=== PATIENT | female | born 1970 | race American Indian/Alaskan Native ===

== ENCOUNTER 2018-02-13 18:21 | Emergency (ER) | payer SELFPAY ==
[2018-02-13 18:26] VITALS: BP 142/88
--- NOTE | 2018-02-13 20:02 | Emergency Department Report ---
ED Rash HPI - HPI Chief Complaint: Skin Rash Stated Complaint: RIGHT ARM PAIN Time Seen by Provider: 02/13/18 19:50 Duration: 1 Day Location: Upper Extremities (bilateral upper extremity) Suspected Cause: Insect Rash Symptoms: Yes Itching, Yes Fever, No Facial Swelling, No Tongue/Oral Swelling, No Breathing Difficulties, No Choking Sensation, No Wheezing/Dyspnea, No Peeling, No Blistering, No Lightheaded, No Malaise, No Myalgias Severity: moderate Other History: This is a 47-year-old -[place] female presents with bilateral upper extremity rash and swelling from insect bite Monday. Patient reports helping her brother move on Monday and woke up Monday morning with insect bites to bilateral upper extremity. She originally thought it was associated with mosquitoes but as the day progressed she noticed swelling to bilateral upper extremity with redness. Patient reports right forearm and hand has increased swelling compared to left hand and forearm. She decided to take Benadryl to help with itching and denies any improvements in symptoms. Patient reports this morning with redness and swelling increase to right upper extremity and throat is itchy. Denies difficulty swallowing, drooling, tongue swelling, nausea vomiting, shortness of breath. ED Review of Systems ROS: Stated complaint: RIGHT ARM PAIN Other details as noted in HPI Constitutional: denies: chills, fever ENT: denies: ear pain, throat pain, congestion Respiratory: denies: cough, shortness of breath, wheezing Cardiovascular: denies: chest pain, palpitations, syncope Gastrointestinal: denies: abdominal pain, nausea, vomiting, diarrhea Musculoskeletal: denies: back pain, joint swelling, arthralgia Skin: rash (bilateral upper extremity from forearms to hands). denies: lesions Neurological: denies: headache, weakness, paresthesias Psychiatric: denies: anxiety, depression ED Past Medical Hx - Past Medical History Previous Medical History?: No - Surgical History Past Surgical History?: No - Social History Smoking Status: Never Smoker Substance Use Type: None - Medications Home Medications: Home Medications Medication Instructions Recorded Confirmed Last Taken Type Ibuprofen [Motrin 800 MG tab] 800 mg PO Q8H PRN 05/28/15 05/28/15 05/27/15 20: 00 History Ibuprofen [Motrin 800 MG tab] 800 mg PO Q8HR PRN #30 tablet 09/10/15 Unknown Rx methOCARBAMOL [Robaxin TAB] 500 mg PO Q6H PRN #30 tablet 05/28/15 Unknown Rx traMADol [Ultram 50 MG tab] 50 mg PO Q6HR PRN #20 tablet 05/28/15 Unknown Rx Naproxen [Naprosyn] 500 mg PO TID PRN #15 tablet 02/13/18 Unknown Rx Sulfamethoxazole/Trimethoprim 1 each PO BID #20 tablet 02/13/18 Unknown Rx [Bactrim DS TAB] hydrOXYzine PAMOATE [Vistaril] 25 mg PO Q6HR PRN #15 capsule 02/13/18 Unknown Rx Rash Exam - Exam General: Vital signs noted. No distress. Alert and acting appropriately. HEENT: No Periorbital Edema, No Conjuctival Injection, No Chemosis, No Perioral Edema, No Tongue Edema, No Uvular Edema, No Compromised Airway, No Drooling Lungs: Yes Good Air Exchange (Normal Breath Sounds), No Wheezes, No Ronchi, No Stridor, No Cough, No Labored Respirations, No Retractions, No Use of Accessory Muscles, No Other Abnormal Lung Sounds Heart: Yes Regular, No Murmur Skin: Yes Tenderness, Yes Erythema (moderate swelling from right posterior forearm to hands, 8-10 cm, erythematous), Yes Edema, No Urticarial Rash, No Maculopapular Rash, No Morbilliform rash, No Bulla(e), No Excoriations, No Weeping, No Encrustations ED Course Vital Signs 02/13/18 18:24 Temperature 99 F Pulse Rate 93 H Respiratory 16 Rate Blood Pressure 142/88 O2 Sat by Pulse 100 Oximetry ED Medical Decision Making - Medical Decision Making This is a 47 y.o. female that presents with erythema and swelling of bilateral upper extremity from insect bite. Patient examined by me. No distress noted. Vitals stable. Given dexamethasone 8 mg IM and Bactrim DS by mouth while in the ER. Physical findings susceptible of cellulitis. Start Bactrim DS, naproxen, and vistaril. Instructed to keep area clean daily and elevate arms while sitting. Patient discharged home stable. Follow-up with [facility] in 2-3 days. Critical care attestation.: If time is entered above; I have spent that time in minutes in the direct care of this critically ill patient, excluding procedure time. ED Disposition Clinical Impression: Cellulitis of right arm Cellulitis Qualifiers: Site of cellulitis: extremity Site of cellulitis of extremity: upper extremity Laterality: left Qualified Code(s): L03.114 - Cellulitis of left upper limb Insect bite Qualifiers: Encounter type: initial encounter Qualified Code(s): W57.XXXA - Bitten or stung by nonvenomous insect and other nonvenomous arthropods, initial encounter Disposition: TO HOME OR SELFCARE Is pt being admited?: No Does the pt Need Aspirin: No Condition: Stable Instructions: Insect Bite or Sting (ED), Cellulitis (ED) Additional Instructions: Wash area area daily. Elevate arms while sitting to decrease swelling. Take naproxen 3 times a day as needed for pain. Complete the full course of antibiotics. Follow up with primary care provider at [facility] in 24-72 hours. Prescriptions: hydrOXYzine PAMOATE [Vistaril] 25 mg PO Q6HR PRN #15 capsule PRN Reason: Itching Naproxen [Naprosyn] 500 mg PO TID PRN #15 tablet PRN Reason: Pain Sulfamethoxazole/Trimethoprim [Bactrim DS TAB] 1 each PO BID #20 tablet Referrals: [facility] [Outside] - 3-5 Days [facility] [Outside] - 3-5 Days [facility] [Outside] - 3-5 Days Time of Disposition: 20:13 Print Language: BOTSWANAN
[2018-02-13] MEDS ORDERED: DECADRON IM ONE (20:13)
[2018-02-13] MEDS ORDERED: BACTRIM DS PO ONE (20:13)
== END 2018-02-13 20:25 | disposition home or self-care (01) ==
LOC: ED 18:21
DX: L03.113 Cellulitis of right upper limb (principal); L03.114 Cellulitis of left upper limb; W57.XXXA Bitten or stung by nonvenomous insect and other nonvenomous arthropods, initial encounter; Y93.89 Activity, other specified; Y99.8 Other external cause status; Y92.89 Other specified places as the place of occurrence of the external cause
CPT/HCPCS: 96372; 99282; J1100

== ENCOUNTER 2018-11-09 20:36 | Inpatient (IN) | payer SELFPAY ==
[2018-11-09] MEDS ORDERED: ASPIRIN PO ONE (21:20)
[2018-11-09 22:08] LABS: Hemoglobin 11.6 gm/dl (10.1-14.3); Mean Corpuscular HGB Conc 34 % (30-34); Mean Corpuscular Volume 84 fl (79-97); Platelet Count 171 K/mm3 (140-440); Red Blood Count 4.05 M/mm3 (3.65-5.03); Red Cell Distribution Width 14.7 % (13.2-15.2)
[2018-11-09 22:19] LABS: BUN/Creatinine Ratio 12; Basophils % (Auto) 0.7 % (0.0-1.8); Blood Urea Nitrogen 7 mg/dL (7-17); Calcium 8.4 mg/dL (8.4-10.2); Eosinophils % (Auto) 1.4 % (0.0-4.3); Hemolysis Index 7; Lymphocytes # (Auto) 2.1 K/mm3 (1.2-5.4); Lymphocytes % (Auto) 40.5 % (13.4-35.0); Monocytes % (Auto) 7.4 % (0.0-7.3)
[2018-11-09 22:20] LABS: Eosinophils # (Auto) 0.1 K/mm3 (0.0-0.4); Monocytes # (Auto) 0.4 K/mm3 (0.0-0.8)
[2018-11-09] MEDS ORDERED: NITRO-BID 2% TP ONE (22:58)
--- NOTE | 2018-11-09 23:01 | Emergency Department Report ---
HPI - General Chief Complaint: Chest Pain Time Seen by Provider: 11/09/18 22:50 - HPI HPI: Room 23 The patient is a 48-year-old female presenting with a chief complaint of chest pain. The patient states today she developed substernal chest pain described as sharp and intermittent in nature. Patient denies shortness of breath, nausea/vomiting or diaphoresis. Patient admits to feeling lightheaded for several weeks. The patient states she's never had a stress test or cardiac catheterization. Patient currently gives her chest pain score 0/10 Location: Chest Duration: Intermittent since 17:00 Quality: Sharp Severity: 0/10 Modifying factors: [see above] Context: [see above] Mode of transportation: [not driving] ED Past Medical Hx - Past Medical History Previous Medical History?: No - Surgical History Past Surgical History?: No - Family History Family history: no significant - Social History Smoking Status: Never Smoker Substance Use Type: None (denies illicit drug use), Alcohol (occasional) - Medications Home Medications: Home Medications Medication Instructions Recorded Confirmed Last Taken Type Ibuprofen [Motrin 800 MG tab] 800 mg PO Q8H PRN 05/28/15 05/28/15 05/27/15 20:00 History Ibuprofen [Motrin 800 MG tab] 800 mg PO Q8HR PRN #30 tablet 05/28/15 Unknown Rx methOCARBAMOL [Robaxin TAB] 500 mg PO Q6H PRN #30 tablet 05/28/15 Unknown Rx traMADol [Ultram 50 MG tab] 50 mg PO Q6HR PRN #20 tablet 05/28/15 Unknown Rx Naproxen [Naprosyn] 500 mg PO TID PRN #15 tablet 02/13/18 Unknown Rx Sulfamethoxazole/Trimethoprim 1 each PO BID #20 tablet 02/13/18 Unknown Rx [Bactrim DS TAB] hydrOXYzine PAMOATE [Vistaril] 25 mg PO Q6HR PRN #15 capsule 02/13/18 Unknown Rx ED Review of Systems ROS: Stated complaint: CHEST PAIN/DIZZINESS Other details as noted in HPI Constitutional: denies: diaphoresis Eyes: denies: eye pain ENT: denies: throat pain Respiratory: denies: shortness of breath Cardiovascular: chest pain Endocrine: no symptoms reported Gastrointestinal: denies: nausea, vomiting Genitourinary: denies: dysuria Musculoskeletal: denies: back pain Neurological: other (lightheadedness). denies: headache Physical Exam - Physical Exam Vital Signs: Vital Signs 11/09/18 20:52 Temperature 98.1 F Pulse Rate 72 Respiratory 18 Rate Blood Pressure 176/82 O2 Sat by Pulse 99 Oximetry Physical Exam: GENERAL: The patient is well-developed well-nourished female sitting on stretcher not appearing to be in acute distress. [] HEENT: Normocephalic. Atraumatic. Extraocular motions are intact. Patient has moist mucous membranes. NECK: Supple. Trachea midline CHEST/LUNGS: Clear to auscultation. There is no respiratory distress noted. HEART/CARDIOVASCULAR: Regular. There is no tachycardia. There is no gallop rub or murmur. ABDOMEN: Abdomen is soft, nontender. Patient has normal bowel sounds. There is no abdominal distention. SKIN: There is no rash. There is no edema. There is no diaphoresis. NEURO: The patient is awake, alert, and oriented. The patient is cooperative. The patient has no focal neurologic deficits. The patient has normal speech. Cranial nerves II through XII grossly intact, no drift MUSCULOSKELETAL: There is no evidence of acute injury. ED Course Vital Signs 11/09/18 20:52 Temperature 98.1 F Pulse Rate 72 Respiratory 18 Rate Blood Pressure 176/82 O2 Sat by Pulse 99 Oximetry ED Medical Decision Making - Lab Data Result diagrams: 11/09/18 21:33 11/09/18 21:33 Laboratory Tests 11/09/18 11/09/18 11/09/18 21:33 21:33 21:33 WBC 5.1 RBC 4.05 Hgb 11.6 Hct 34.0 MCV 84 MCH 29 MCHC 34 RDW 14.7 Plt Count 171 Lymph % (Auto) 40.5 H [place] % (Auto) 7.4 H Eos % (Auto) 1.4 Baso % (Auto) 0.7 Lymph # 2.1 [place] # 0.4 Eos # 0.1 Baso # 0.0 Seg Neutrophils % 50.0 Seg Neutrophils # 2.5 Sodium 140 Potassium 3.6 Chloride 102.6 Carbon Dioxide 25 Anion Gap 16 BUN 7 Creatinine 0.6 L Estimated GFR > 60 BUN/Creatinine Ratio 12 Glucose 105 H Calcium 8.4 Troponin T < 0.010 HCG, Qual Negative - EKG Data -: EKG Interpreted by Me EKG shows normal: sinus rhythm Rate: normal - EKG Data When compared to previous EKG there are: previous EKG unavailable Interpretation: other (frequent PVCs) - Radiology Data Radiology results: image reviewed (chest x-ray) interpreted by me: Chest x-ray-no focal infiltrates, no pneumothorax - Differential Diagnosis ACS, pericarditis, GERD Critical care attestation.: If time is entered above; I have spent that time in minutes in the direct care of this critically ill patient, excluding procedure time. ED Disposition Clinical Impression: Chest pain, Frequent PVCs Disposition: -09 OP ADMIT IP TO THIS HOSP Is pt being admited?: Yes Does the pt Need Aspirin: Yes Condition: Fair Instructions: Chest Pain (ED) Referrals: MAGDALENE MAZARIEGOS MD [Primary Care Provider] - 3-5 Days Time of Disposition: 23:26 (hospitalist paged Dr Mclaughlin))
--- NOTE | 2018-11-10 | XRay Report ---
FINAL REPORT EXAM: XR CHEST 1V AP HISTORY: chest pain TECHNIQUE: AP portable view of the chest. PRIORS: None. FINDINGS: The cardiomediastinal silhouette appears normal. The lungs are clear. The bones and soft tissues are unremarkable. IMPRESSION: No evidence of acute cardiopulmonary disease.
[2018-11-10] MEDS: CLARITIN PO SCH ×2 (01:31→10:05)
[2018-11-10] MEDS ORDERED: TYLENOL PR PRN (02:21)
[2018-11-10] MEDS ORDERED: NITROSTAT SL PRN (02:22)
[2018-11-10] MEDS ORDERED: MORPHINE IV PRN (02:23)
[2018-11-10] MEDS ORDERED: ZOFRAN IV PRN (02:24)
[2018-11-10] MEDS: NITRO-BID 2% TP SCH ×3 (06:11→13:58)
[2018-11-10] MEDS ORDERED: TYLENOL PO PRN (06:49)
--- NOTE | 2018-11-10 07:19 | History and Physical Report ---
CHIEF COMPLAINT: Chest pain. HISTORY OF PRESENT ILLNESS: The patient is a 48-year-old female who was having substernal chest pain, which she describes as sharp and intermittent in nature. The pain does not radiate and is not associated with shortness of breath, nausea or vomiting; however, there is association with dizziness. The patient also denied history of diaphoresis, denied history of fever, chills, or cough and presented for evaluation. PAST MEDICAL HISTORY: Unremarkable. PAST SURGICAL HISTORY: Unremarkable. FAMILY HISTORY: Noncontributory. SOCIAL HISTORY: The patient does not smoke, does not use illicit drugs and drinks alcohol occasionally. MEDICATIONS: The patient is on Motrin 800 mg by mouth every 8 hours, Robaxin 500 mg by mouth every 6 hours as needed for pain. Also, the patient is on tramadol 50 mg by mouth every 6 hours as needed for pain and Naprosyn 500 mg by mouth 3 times daily as needed for pain. The patient is on Bactrim double strength 1 by mouth twice daily, and Vistaril 25 mg by mouth every 6 hours as needed for anxiety. ALLERGIES: There are no known drug allergies. REVIEW OF SYSTEMS: CONSTITUTIONAL: There is no fever, no chills, no diaphoresis. HEENT: There is no headache or sore throat. CARDIOVASCULAR SYSTEM: Chest pain is present. No orthopnea. RESPIRATORY SYSTEM: There is no shortness of breath or cough. GASTROINTESTINAL SYSTEM: There is no nausea, no vomiting, no abdominal pain, diarrhea or constipation. NEUROLOGICAL SYSTEM: Dizziness present. There is no numbness. No altered mental status. MUSCULOSKELETAL SYSTEM: There is no joint pain or swelling. DERMATOLOGICAL SYSTEM: There is no skin rash or itching. GENITOURINARY SYSTEM: There is no dysuria, hematuria or flank pain. Rest of system review is normal. PHYSICAL EXAMINATION: GENERAL: At the time of my exam, the patient was found to be alert, oriented x 3, and not in acute distress. VITAL SIGNS: At the initial time of presentation show temperature of 98.1 degrees Fahrenheit, pulse of 72, respirations 18, blood pressure 176/82, O2 sat of 99% on room air. HEENT: Showed pupils to be equal, round, and reactive to light and accommodating. Extraocular muscles are intact. NECK: Supple with no JVD or carotid bruit. CARDIOVASCULAR SYSTEM: Showed normal first and second heart sounds, which were heard with no gallops or murmurs. RESPIRATORY SYSTEM: Showed good air entry on both sides of the lung with no abnormal breath sounds. GASTROINTESTINAL SYSTEM: Showed abdomen to be full, soft, nontender with no organomegaly elicited. No tenderness. No rebound tenderness or rigidity. Bowel sound is normal. NEUROLOGICAL SYSTEM: Showed no focal deficit. MUSCULOSKELETAL SYSTEM: Showed no joint swelling or tenderness. DERMATOLOGICAL SYSTEM: Showed no skin rash. GENITOURINARY SYSTEM: Showing no costovertebral angle tenderness. PERTINENT LABORATORY AND IMAGING STUDIES: The patient had chest x-ray done that shows no acute cardiopulmonary lesion. The patient's lab results show CBC with normal white count, normal hemoglobin and normal hematocrit with CBC differential showing elevated lymphocyte count of 14.5 and elevated monocyte count of 7.4. The patient's chemistry came back unremarkable. test was negative. The patient's troponin level came back normal. DIAGNOSES: 1. Chest pain. 2. Elevated blood pressure. PLAN OF CARE: 1. The patient will be admitted to telemetry. 2. The patient will have cardiac enzymes involving troponin, total CK, and CK-MB checked serially every 6 hours x 2 more level. 3. The patient will be n.p.o. for Lexiscan stress test this morning. 4. The patient will be on aspirin 325 mg by mouth daily and will be on Tylenol 650 mg by mouth every 4 hours for fever and headache. 5. The patient will be on nitro paste half inch to the anterior chest wall q.i.d. 6. The patient will be on nitroglycerin sublingual 0.4 mg every 5 minutes as needed for breakthrough chest pain. 7. The patient will be on IV morphine 2 mg every 3 hours as needed for pain and IV Zofran 4 mg every 8 hours as needed for nausea and vomiting. 8. The patient will be on oxygen by nasal cannula at 2 liters per minute. 9. This patient will be on Flonase 100 mcg applied to the nostrils daily and also Claritin 10 mg by mouth daily for nasal congestion. JOB# [id number] OCN/NTS
[2018-11-10] MEDS ORDERED: FLONASE NS SCH (10:00)
[2018-11-10] MEDS ORDERED: ASPIRIN PO SCH (10:00)
[2018-11-10 12:04] VITALS: BP 124/67
--- NOTE | 2018-11-10 12:32 | Discharge Summary ---
Providers - Providers Date of Admission: 11/09/18 23:28 Attending physician: DEANNA ENGEL MD Primary care physician: MAGDALENE MAZARIEGOS Hospitalization Condition: Fair Hospital course: 48-year-old woman who presents with chest pain, she has no significant past medical history She had elevated blood pressure and chest pain. She went on to have a stress test that was negative. Her blood pressure was elevated to 150 systolic, but resolved without any specific intervention, she is recommended to see her PCP for blood pressure check within 2 weeks. Problems Chest pain due to elevated blood pressure and costochondritis Elevated blood pressure Disposition: DC-01 TO HOME OR SELFCARE Time spent for discharge: 33 mins Core Measure Documentation - Palliative Care Palliative Care/ Comfort Measures: Not Applicable - Core Measures Any of the following diagnoses?: none Exam - Constitutional Vitals: Temp Pulse Resp BP Pulse Ox 98.1 F 76 18 124/67 100 11/10/18 04:49 11/10/18 12:02 11/10/18 04:49 11/10/18 12:02 11/10/18 12:02 General appearance: Present: no acute distress, well-nourished - EENT Eyes: Present: PERRL ENT: hearing intact, clear oral mucosa - Neck Neck: Present: supple, normal ROM - Respiratory Respiratory effort: normal Respiratory: bilateral: CTA - Cardiovascular Heart Sounds: Present: S1 & S2. Absent: rub, click - Extremities Extremities: pulses symmetrical, No edema Peripheral Pulses: within normal limits - Abdominal General gastrointestinal: Present: soft, non-tender, non-distended, normal bowel sounds Female genitourinary: Present: normal - Integumentary Integumentary: Present: clear, warm, dry - Musculoskeletal Musculoskeletal: gait normal, strength equal bilaterally - Psychiatric Psychiatric: appropriate mood/affect, intact judgment & insight - Neurologic Neurologic: CNII-XII intact, moves all extremities Plan Follow up with: MAGDALENE MAZARIEGOS MD [Primary Care Provider] - 3-5 Days Forms: Discharge Signature Page
[2018-11-10 14:23] LABS: Creatine Kinase MB < 1.0 ng/mL (0.0-4.0)
--- NOTE | 2018-11-10 21:57 | Treadmill Report ---
NUCLEAR PERFUSION SCAN REFERRING PHYSICIAN: Richar Mclaughlin MD PROTOCOL: The patient was brought to the stress lab in a postabsorptive state, given 10 mCi of technetium 99m at rest. The patient underwent rest imaging. The patient underwent treadmill stress test per standard protocol. At peak stress, the patient was given 30 mCi of technetium 99m at rest. Shortly thereafter, patient underwent stress imaging. Raw imaging reveals mild GI artifact, no significant motion artifact. SPECT imaging examined carefully in the horizontal long axis, vertical long axis, short axis views. Grossly, there is normal homogenous uptake of radioisotope in all reported segments. No evidence of significant fixed or reversible perfusion defects suggestive of prior infarction or ischemia. Gated wall motion reveals normal systolic thickening, calculated ejection fraction 67%. No TID. CONCLUSIONS: 1. Normal myocardial perfusion scan without evidence of active ischemia or prior infarction. 2. Normal left ventricular systolic performance without evidence of transient ischemic dilatation or stress-induced segmental wall motion abnormalities. 3. Treadmill stress test is reported separately. JOB# [id number] TRANG/LUIS ENRIQUE
== END 2018-11-10 14:38 | disposition home or self-care (01) | DRG 313 ==
LOC: ED 20:36 → 4A 23:28
PROVIDERS: ADMIT Internal Medicine; ATTEND Internal Medicine
DX: R07.9 Chest pain, unspecified (principal); I49.3 Ventricular premature depolarization; R03.0 Elevated blood-pressure reading, without diagnosis of hypertension; Z72.89 Other problems related to lifestyle; Z79.899 Other long term (current) drug therapy
CPT/HCPCS: 36415; 71045; 78452; 80048; 82550; 82553; 84484; 84703; 85025; 93005; 93010; 93017; G0378; A9502

== ENCOUNTER 2020-01-23 12:48 | Outpatient (CLI) | payer OTHER | END 2020-01-23 12:49 | disposition home or self-care (01) | LOC: SPVWC 12:48 | PROVIDERS: ATTEND Obstetrics & Gynecology | DX: Z12.31 Encounter for screening mammogram for malignant neoplasm of breast (principal) | CPT/HCPCS: 77067 ==

== ENCOUNTER 2021-10-29 20:11 | Emergency (ER) | payer SELFPAY ==
[2021-10-29 20:48] VITALS: BP 159/79
--- NOTE | 2021-10-29 21:03 | Emergency Department Report ---
ED Upper Extremity Inj HPI - General Chief Complaint: Shoulder Injury Stated Complaint: FELL/ RIGHT ARM PAIN Time Seen by Provider: 10/29/21 20:54 Source: patient Mode of arrival: Ambulatory Limitations: No Limitations - History of Present Illness Initial Comments: Patient presents secondary to right shoulder pain. Last night she could not sleep due to the pain. Yesterday, while she was pushing herself up from a chair she started having pain in the right shoulder. The pain is more in the inferior aspect of the axillary area and into the medial arm. The pain is worse with any kind of movement. It is worse with palpation. She has pain in the medial arm, right axillary area, and into the upper anterior chest. Patient has no direct trauma. She did not fall or hurt her self. She has no numbness or tingling in the arm or leg. There is no pain in the elbow. She has no chest pain or shortness of breath. Pain is constant and aching. - Related Data Previous Rx's Medication Instructions Recorded Last Taken Type Ibuprofen [Motrin] 600 mg PO Q8H PRN #30 tablet 10/29/21 Unknown Rx Allergies Allergy/AdvReac Type Severity Reaction Status Date / Time No Known Allergies Allergy Unverified 05/28/15 11:47 ED Review of Systems ROS: Stated complaint: FELL/ RIGHT ARM PAIN Other details as noted in HPI Comment: All other systems reviewed and negative Constitutional: denies: fever Eyes: denies: vision change ENT: denies: throat pain Respiratory: denies: cough Cardiovascular: denies: chest pain Endocrine: denies: unexplained weight loss Gastrointestinal: denies: abdominal pain Genitourinary: denies: dysuria Musculoskeletal: denies: back pain Skin: denies: rash Neurological: denies: headache Hematological/Lymphatic: denies: easy bruising ED Past Medical Hx - Past Medical History Previous Medical History?: Yes Hx Hypertension: Yes - Surgical History Past Surgical History?: Yes Additional Surgical History: Tubal Ligation - Family History Family history: hypertension - Social History Smoking Status: Never Smoker Substance Use Type: None - Medications Home Medications: Home Medications Medication Instructions Recorded Confirmed Last Taken Type Ibuprofen [Motrin] 600 mg PO Q8H PRN #30 tablet 10/29/21 Unknown Rx ED Physical Exam - General Limitations: No Limitations, Other (Pulse ox noted and normal) General appearance: alert, in no apparent distress, other (Uncomfortable) - Head Head exam: Present: atraumatic, normocephalic - Eye Eye exam: Present: normal appearance, EOMI - ENT ENT exam: Present: normal external ear exam - Neck Neck exam: Present: normal inspection, tenderness (Right sternocleidomastoid and trapezius area). Absent: meningismus - Respiratory Respiratory exam: Present: normal lung sounds bilaterally. Absent: respiratory distress - Cardiovascular Cardiovascular Exam: Present: regular rate, normal rhythm - GI/Abdominal GI/Abdominal exam: Present: soft. Absent: distended, tenderness - Extremities Exam Extremities exam: Present: tenderness (There is tenderness in the right trapezius area. There is no tenderness over the clavicle.), normal capillary refill, other (Patient has tenderness with palpation over the anterior aspect of the right arm and right axillary area. There is no deformity noted. Patient had good capillary refill. There is limited range of motion of the right shoulder due to pain but no limited range of motion of the right elbow.) - Back Exam Back exam: Absent: CVA tenderness (R), CVA tenderness (L) - Neurological Exam Neurological exam: Present: alert, oriented X3, CN II-XII intact. Absent: motor sensory deficit - Psychiatric Psychiatric exam: Present: normal affect, normal mood - Skin Skin exam: Present: warm, dry ED Course Vital Signs 10/29/21 20:41 Temperature 98 F Pulse Rate 75 Respiratory 18 Rate Blood Pressure 159/79 O2 Sat by Pulse 99 Oximetry - Reevaluation(s) Reevaluation #1: 10/29/21 21:02 X-rays are in progress. Reevaluation #2: 10/29/21 21:18 Radiographs are noted. Patient was placed in a sling and discharged. ED Medical Decision Making - Radiology Data Radiology results: report reviewed - Medical Decision Making Patient presents secondary to right shoulder pain which was more musculoskeletal in nature. This was related to pushing as opposed to a fall. Radiographic abnormality was noted in the clavicle, but the patient has no clavicular tenderness. I do not believe this truly represents a clavicle fracture. Patient was placed in a sling for comfort. She was referred to her PCP for recheck. There is no evidence of neurovascular compromise. She has good deltoid sensation. This is not exertional in the sense of pain with walking around. I do not believe this represents referred pain from a cardiac source. Critical Care Time: No Critical care attestation.: If time is entered above; I have spent that time in minutes in the direct care of this critically ill patient, excluding procedure time. ED Disposition Clinical Impression: Right shoulder strain Qualifiers: Encounter type: initial encounter Qualified Code(s): S46.911A - Strain of unspecified muscle, fascia and tendon at shoulder and upper arm level, right arm, initial encounter Disposition: HOME / SELF CARE / HOMELESS Is pt being admited?: No Condition: Stable Instructions: Muscle Strain, [id number], How to Use Cold Therapy Additional Instructions: Apply ice. Drink plenty water. After 3 days of ice, switch to heat. Return for problems. Follow-up with your family doctor or the referral physician for recheck. Prescriptions: Ibuprofen [Motrin] 600 mg PO Q8H PRN #30 tablet PRN Reason: Pain Referrals: PRIMARY MD DWIGHT [Referring] - 3-5 Days MCKENNA PRIETO MD [Staff Physician] - 3-5 Days
--- NOTE | 2021-10-29 21:13 | XRay Report ---
RIGHT SHOULDER 3 VIEW(S) INDICATION / CLINICAL INFORMATION: injury/fall right shoulder pain COMPARISON: None available. FINDINGS: BONES / JOINT(S): Mild cortical irregularity along the superior cortical margin right distal clavicle suggestive for nondisplaced fracture. No significant arthritis. SOFT TISSUES: No significant abnormality. ADDITIONAL FINDINGS: None. Signer Name: Everett Butts MD Signed: 10/29/2021 9:08 PM Workstation Name: [id number]
[2021-10-29] MEDS ORDERED: KETOROLAC 30 MG/1 ML INJ IM ONE (21:14)
== END 2021-10-29 21:42 | disposition home or self-care (01) ==
LOC: ED 20:11
DX: S46.911A Strain of unspecified muscle, fascia and tendon at shoulder and upper arm level, right arm, initial encounter (principal); I10 Essential (primary) hypertension; Z98.51 Tubal ligation status; Z79.899 Other long term (current) drug therapy; X58.XXXA Exposure to other specified factors, initial encounter; Y93.89 Activity, other specified; Y92.89 Other specified places as the place of occurrence of the external cause; Y99.8 Other external cause status
CPT/HCPCS: 73030; 96372; 99283; J1885